=== PATIENT | male | born 1960 | race Caucasian/White ===

== ENCOUNTER 2024-03-23 19:44 | Inpatient (IN) | payer OTHER, SELFPAY ==
[2024-03-23] VITALS (11 sets, daily range): BP systolic 106–133; BP diastolic 66–92; BMI 22.2
--- NOTE | 2024-03-23 14:08 | ED.GENMED ---
History of Present Illness
<Carson Quigley DO - Last Filed: 03/23/24 14:12>
General
Chief Complaint: Head Injury
Time Seen by Provider: 03/23/24 14:02
<Gabriele Soto PA-C - Last Filed: 03/25/24 08:15>
General
Source: patient
History of Present Illness
History of Present Illness:
63-year-old male presenting to the emergency department for evaluation with the EMS after he was reportedly found behind the liquor store after an unwitnessed fall which resulted in right-sided head and facial trauma. Patient states he did not
drink anything today but EMS reports they found him with 4 empty small wine bottles and patient does note that he normally drinks at least a few of these 1 bottles daily. Patient is unable to recollect the event but states that he had been feeling
as if you are having a much harder time walking and then felt as if he could no longer walk. Patient has noted right-sided facial trauma and notes some pain to the right side of his head/face but denies any other injuries. He notes a history of
chronic right-sided/pelvic pain which is not any different today. Denies any use of anticoagulants. Patient does state that he had to recently settle a lease and some house related issues which has been causing him some increased stress which may
have led to increased alcohol intake.
<Bethanie Fish PA-C - Last Filed: 03/23/24 22:18>
General
Exam Limitations: none
Nursing documentation reviewed up to this point in time: agreed with
Past History
<Gabriele Soto PA-C - Last Filed: 03/25/24 08:15>
Past History
ED Past Surgical History: None
Social History
Tobacco: Non-smoker
Alcohol: Chronic alcoholic
Drug: None
Personal: Single
Living: alone
Review of Systems
<Gabriele Soto PA-C - Last Filed: 03/25/24 08:15>
Review of Systems
All Other Systems: ROS reviewed and negative except as documented in HPI and ROS
Phy Exam
<Gabriele Soto PA-C - Last Filed: 03/25/24 08:15>
Physical Exam
Physical Exam:
GENERAL: Alert , in no apparent distress, appears older than stated age
HEAD: Contusion to the right frontal scalp, there are other small contusion/hematoma noted along the right side of the head/face. Patient's face is covered with dried blood
EYE: pupils equal and reactive, 4 mm bilateral
NECK: Supple, no midline tenderness, cervical collar placed
ENT: o/p clr, mmm. No tongue lacerations or dental fractures
CARDIAC: Tachycardic rate and rhythm.
LUNGS: Clear breath sounds bilaterally, no acute respiratory distress, no wheezes/rales/rhonchi
ABDOMEN: Soft, without focal tenderness, no r/g, no cvat
NEUROLOGICAL: Alert and oriented, no focal neuro deficits, no tremors with arms extended
SKIN: Warm and dry, skin intact.
MUSCULOSKELETAL: No edema, well perfused. No signs of trauma
PSYCH: Normal and appropriate interaction.
Scores
<Gabriele Soto PA-C - Last Filed: 03/25/24 08:15>
Heart Failure Risk
Heart Failure Risk Score: Not Applicable
Heart Score for Chest Pain Patients
STEMI patient?: Not applicable
Withdrawal Assessment of Alcohol
Withdrawal Assessment Completed?: Yes
Nausea and Vomiting: No nausea and no vomiting
Tactile Disturbances: None
Tremor: No tremor
Auditory Disturbances: Not present
Paroxysmal Sweats: No sweat visible
Visual Disturbances: Not present
Anxiety: No anxiety, at ease
Headache, Fullness in Head: Not present
Agitation: Normal activity
Orientation and clouding of sensorium: Oriented and can do serial additions
Total CIWA Score: 0
Alcohol Withdrawal Medication Recommendation: Equal to MSAS Score 0-4. Monitor & re-assess q2hrs, NO MEDICATION NEEDED
<Bethanie Fish PA-C - Last Filed: 03/23/24 22:18>
Withdrawal Assessment of Alcohol
Total CIWA Score: 0
Alcohol Withdrawal Medication Recommendation: Equal to MSAS Score 0-4. Monitor & re-assess q2hrs, NO MEDICATION NEEDED
Course
<Carson Quigley DO - Last Filed: 03/23/24 14:12>
Orders/Labs/Results
Orders:
Orders
03/23/24 14:04
Electrocardiogram (*1) Urgent
Reason for Study: Fatigue / Weakness
03/23/24 14:05
EKG- Treatment ONCE
03/23/24 14:06
CT Cervical Spine W/o Iv Contr Urgent
Comment:
Reason For Exam: fall, intoxicated, right sided facial trauma
CT Facial Bones W/o Iv Contras Urgent
Comment:
Reason For Exam: fall, intoxicated, right sided facial trauma
CT Head W/o Iv Contrast Urgent
Comment:
Reason For Exam: fall, intoxicated, right sided facial trauma
Cervical Collar- Treatment ONCE
Collar Type: Hard Cervical Collar
03/23/24 14:07
Tetanus/Diphth/Acelpertussis [Adacel] 0.5 ml IM .ONCE ONE
03/23/24 14:10
Alcohol Urgent
Complete Blood Count/With Diff Urgent
Comprehensive Metabolic Panel Urgent
Lipase Urgent
Comment: ADD ON
Magnesium Urgent
03/23/24 14:52
CT Abd/pelvis W Iv Cont Urgent
Comment:
Reason For Exam: fall, elevated LFT
03/23/24 Dinner
Regular
At Your Request: Full Participation
03/23/24 18:33
Add On- LAB Urgent
Tests Added?: [email or web address]
03/23/24 19:20
Admit/Transfer Patient As Directed
Co-Sign Provider:
Level of Care: Inpatient admission
Assign to:: IMU- Intermediate Care
Physician / Group: gloria
Diagnosis: alcohol withdrawal
Reason for Hospitalization: alcohol withdrawal
Expected length of stay greater than two midnights?: Yes
ELOS- Estimated Length of Stay in days: 2
I certify the patient meets the requirements for IP care: Yes
03/23/24 19:21
Code Status As Directed
Resuscitation Status: Full Code
03/23/24 21:17
0.9% Sodium Chloride 1000 ml [Nss] 1,000 ml IV 100 mls/hr
0.9% Sodium Chloride [Nss (Preservative Free)] See Protocol IV PRN PRN
FOLic ACID [Folvite] 1 mg 0.9% Sodium Chloride 50 ml [Nss] 50 ml IV DAILYPRN
Lorazepam [Ativan] 1 mg IV Q1HPRN PRN
Lorazepam [Ativan] 1 mg PO Q2HPRN PRN
Lorazepam [Ativan] 2 mg IV Q1HPRN PRN
Ondansetron Injectable [Zofran] 4 mg IV Q6HPRN PRN
Thiamine Injection 200 mg IV Q12
03/23/24 21:17
Activity As Directed
Activity Level: As Tolerated
MSAS SCORE As Directed
MSAS Score 0-4: Repeat MSAS every 2 hours until 0-4 for three consecutive assessments, then every 4 hours x 48
hours.
MSAS Score 5-7: For MILD withdrawl symptoms. Repeat MSAS and RASS every 2 hours
MSAS Score 8-11: For MODERATE withdrawal symptoms. Repeat MSAS and RASS every 1 hour. Consider ICU or IMU
level of care.
MSAS Score > 11: For SEVERE withdrawal symptoms. Repeat MSAS and RASS every 1 hour. Notify provider, consider
ICU level of care.
MSAS Additional Instructions: If no improvement or no decrease in score from severe to moderate within 12
hours, consult psychiatry
MSAS Notify Provider: Notify provider if patient requires more than 10 mg of Lorazepam in eight hour period.
Pneumatic Compression Sleeves As Directed
Type: Knee high
Vital Signs As Directed
Frequency: Per unit guidelines
DX Deep Vein Thrombosis Video Routine
03/24/24 05:36
Complete Blood Count/With Diff IN AM
Comprehensive Metabolic Panel IN AM
03/24/24 08:00
FOLic ACID [Folvite] 1 mg PO DAILY
03/26/24 20:00
Thiamine HCl [Vitamin B1] 100 mg PO BID
Abnormal Lab Results
03/23/24
14:10
WBC 4.5 L 10^3/uL
(4.8-10.8)
RBC 4.49 L 10^6/uL
(4.70-6.10)
MCV 100.2 H fL
(80.0-94.0)
MCH 35.0 H pg
(27.0-31.0)
RDW 16.0 H %
(11.5-14.5)
Plt Count 100 L 10^3/uL
(130-400)
BUN 7 L mg/dl
(9-20)
Glucose 114 H mg/dl
(70-99)
AST 546 H* U/L
(17-59)
ALT 213 H U/L
(0-50)
03/23/24 14:10
03/23/24 14:10
Vital Signs
Initial and Last Documented VS:
Initial Vital Signs
Pulse Resp Pulse Ox
109 20 97
03/23/24 14:01 03/23/24 14:01 03/23/24 14:01
Last Documented Vital Signs
Temp Pulse Resp BP Pulse Ox
98.8 F 72 15 129/83 95
03/25/24 07:30 03/25/24 06:00 03/23/24 21:17 03/25/24 06:00 03/25/24 06:00
<Gabriele Soto PA-C - Last Filed: 03/25/24 08:15>
Orders/Labs/Results
Orders:
Orders
03/23/24 14:04
Electrocardiogram (*1) Urgent
Reason for Study: Fatigue / Weakness
03/23/24 14:05
EKG- Treatment ONCE
03/23/24 14:06
CT Cervical Spine W/o Iv Contr Urgent
Comment:
Reason For Exam: fall, intoxicated, right sided facial trauma
CT Facial Bones W/o Iv Contras Urgent
Comment:
Reason For Exam: fall, intoxicated, right sided facial trauma
CT Head W/o Iv Contrast Urgent
Comment:
Reason For Exam: fall, intoxicated, right sided facial trauma
Cervical Collar- Treatment ONCE
Collar Type: Hard Cervical Collar
03/23/24 14:07
Tetanus/Diphth/Acelpertussis [Adacel] 0.5 ml IM .ONCE ONE
03/23/24 14:10
Alcohol Urgent
Complete Blood Count/With Diff Urgent
Comprehensive Metabolic Panel Urgent
Lipase Urgent
Comment: ADD ON
Magnesium Urgent
03/23/24 14:52
CT Abd/pelvis W Iv Cont Urgent
Comment:
Reason For Exam: fall, elevated LFT
03/23/24 Dinner
Regular
At Your Request: Full Participation
03/23/24 18:33
Add On- LAB Urgent
Tests Added?: [email or web address]
03/23/24 19:20
Admit/Transfer Patient As Directed
Co-Sign Provider:
Level of Care: Inpatient admission
Assign to:: IMU- Intermediate Care
Physician / Group: gloria
Diagnosis: alcohol withdrawal
Reason for Hospitalization: alcohol withdrawal
Expected length of stay greater than two midnights?: Yes
ELOS- Estimated Length of Stay in days: 2
I certify the patient meets the requirements for IP care: Yes
03/23/24 19:21
Code Status As Directed
Resuscitation Status: Full Code
03/23/24 21:17
0.9% Sodium Chloride 1000 ml [Nss] 1,000 ml IV 100 mls/hr
0.9% Sodium Chloride [Nss (Preservative Free)] See Protocol IV PRN PRN
FOLic ACID [Folvite] 1 mg 0.9% Sodium Chloride 50 ml [Nss] 50 ml IV DAILYPRN
Lorazepam [Ativan] 1 mg IV Q1HPRN PRN
Lorazepam [Ativan] 1 mg PO Q2HPRN PRN
Lorazepam [Ativan] 2 mg IV Q1HPRN PRN
Ondansetron Injectable [Zofran] 4 mg IV Q6HPRN PRN
Thiamine Injection 200 mg IV Q12
03/23/24 21:17
Activity As Directed
Activity Level: As Tolerated
MSAS SCORE As Directed
MSAS Score 0-4: Repeat MSAS every 2 hours until 0-4 for three consecutive assessments, then every 4 hours x 48
hours.
MSAS Score 5-7: For MILD withdrawl symptoms. Repeat MSAS and RASS every 2 hours
MSAS Score 8-11: For MODERATE withdrawal symptoms. Repeat MSAS and RASS every 1 hour. Consider ICU or IMU
level of care.
MSAS Score > 11: For SEVERE withdrawal symptoms. Repeat MSAS and RASS every 1 hour. Notify provider, consider
ICU level of care.
MSAS Additional Instructions: If no improvement or no decrease in score from severe to moderate within 12
hours, consult psychiatry
MSAS Notify Provider: Notify provider if patient requires more than 10 mg of Lorazepam in eight hour period.
Pneumatic Compression Sleeves As Directed
Type: Knee high
Vital Signs As Directed
Frequency: Per unit guidelines
DX Deep Vein Thrombosis Video Routine
03/24/24 05:36
Complete Blood Count/With Diff IN AM
Comprehensive Metabolic Panel IN AM
03/24/24 08:00
FOLic ACID [Folvite] 1 mg PO DAILY
03/26/24 20:00
Thiamine HCl [Vitamin B1] 100 mg PO BID
Abnormal Lab Results
03/23/24
14:10
WBC 4.5 L 10^3/uL
(4.8-10.8)
RBC 4.49 L 10^6/uL
(4.70-6.10)
MCV 100.2 H fL
(80.0-94.0)
MCH 35.0 H pg
(27.0-31.0)
RDW 16.0 H %
(11.5-14.5)
Plt Count 100 L 10^3/uL
(130-400)
BUN 7 L mg/dl
(9-20)
Glucose 114 H mg/dl
(70-99)
AST 546 H* U/L
(17-59)
ALT 213 H U/L
(0-50)
03/23/24 14:10
03/23/24 14:10
Vital Signs
Initial and Last Documented VS:
Initial Vital Signs
Pulse Resp Pulse Ox
109 20 97
03/23/24 14:01 03/23/24 14:01 03/23/24 14:01
Last Documented Vital Signs
Temp Pulse Resp BP Pulse Ox
98.8 F 72 15 129/83 95
03/25/24 07:30 03/25/24 06:00 03/23/24 21:17 03/25/24 06:00 03/25/24 06:00
<Bethanie Fish PA-C - Last Filed: 03/23/24 22:18>
Orders/Labs/Results
Orders:
Orders
03/23/24 14:04
Electrocardiogram (*1) Urgent
Reason for Study: Fatigue / Weakness
03/23/24 14:05
EKG- Treatment ONCE
03/23/24 14:06
CT Cervical Spine W/o Iv Contr Urgent
Comment:
Reason For Exam: fall, intoxicated, right sided facial trauma
CT Facial Bones W/o Iv Contras Urgent
Comment:
Reason For Exam: fall, intoxicated, right sided facial trauma
CT Head W/o Iv Contrast Urgent
Comment:
Reason For Exam: fall, intoxicated, right sided facial trauma
Cervical Collar- Treatment ONCE
Collar Type: Hard Cervical Collar
03/23/24 14:07
Tetanus/Diphth/Acelpertussis [Adacel] 0.5 ml IM .ONCE ONE
03/23/24 14:10
Alcohol Urgent
Complete Blood Count/With Diff Urgent
Comprehensive Metabolic Panel Urgent
Lipase Urgent
Comment: ADD ON
Magnesium Urgent
03/23/24 14:52
CT Abd/pelvis W Iv Cont Urgent
Comment:
Reason For Exam: fall, elevated LFT
03/23/24 Dinner
Regular
At Your Request: Full Participation
03/23/24 18:33
Add On- LAB Urgent
Tests Added?: [email or web address]
03/23/24 19:20
Admit/Transfer Patient As Directed
Co-Sign Provider:
Level of Care: Inpatient admission
Assign to:: IMU- Intermediate Care
Physician / Group: gloria
Diagnosis: alcohol withdrawal
Reason for Hospitalization: alcohol withdrawal
Expected length of stay greater than two midnights?: Yes
ELOS- Estimated Length of Stay in days: 2
I certify the patient meets the requirements for IP care: Yes
03/23/24 19:21
Code Status As Directed
Resuscitation Status: Full Code
03/23/24 21:17
0.9% Sodium Chloride 1000 ml [Nss] 1,000 ml IV 100 mls/hr
0.9% Sodium Chloride [Nss (Preservative Free)] See Protocol IV PRN PRN
FOLic ACID [Folvite] 1 mg 0.9% Sodium Chloride 50 ml [Nss] 50 ml IV DAILYPRN
Lorazepam [Ativan] 1 mg IV Q1HPRN PRN
Lorazepam [Ativan] 1 mg PO Q2HPRN PRN
Lorazepam [Ativan] 2 mg IV Q1HPRN PRN
Ondansetron Injectable [Zofran] 4 mg IV Q6HPRN PRN
Thiamine Injection 200 mg IV Q12
03/23/24 21:17
Activity As Directed
Activity Level: As Tolerated
MSAS SCORE As Directed
MSAS Score 0-4: Repeat MSAS every 2 hours until 0-4 for three consecutive assessments, then every 4 hours x 48
hours.
MSAS Score 5-7: For MILD withdrawl symptoms. Repeat MSAS and RASS every 2 hours
MSAS Score 8-11: For MODERATE withdrawal symptoms. Repeat MSAS and RASS every 1 hour. Consider ICU or IMU
level of care.
MSAS Score > 11: For SEVERE withdrawal symptoms. Repeat MSAS and RASS every 1 hour. Notify provider, consider
ICU level of care.
MSAS Additional Instructions: If no improvement or no decrease in score from severe to moderate within 12
hours, consult psychiatry
MSAS Notify Provider: Notify provider if patient requires more than 10 mg of Lorazepam in eight hour period.
Pneumatic Compression Sleeves As Directed
Type: Knee high
Vital Signs As Directed
Frequency: Per unit guidelines
DX Deep Vein Thrombosis Video Routine
03/24/24 05:36
Complete Blood Count/With Diff IN AM
Comprehensive Metabolic Panel IN AM
03/24/24 08:00
FOLic ACID [Folvite] 1 mg PO DAILY
03/26/24 20:00
Thiamine HCl [Vitamin B1] 100 mg PO BID
Abnormal Lab Results
03/23/24
14:10
WBC 4.5 L 10^3/uL
(4.8-10.8)
RBC 4.49 L 10^6/uL
(4.70-6.10)
MCV 100.2 H fL
(80.0-94.0)
MCH 35.0 H pg
(27.0-31.0)
RDW 16.0 H %
(11.5-14.5)
Plt Count 100 L 10^3/uL
(130-400)
BUN 7 L mg/dl
(9-20)
Glucose 114 H mg/dl
(70-99)
AST 546 H* U/L
(17-59)
ALT 213 H U/L
(0-50)
03/23/24 14:10
03/23/24 14:10
Vital Signs
Initial and Last Documented VS:
Initial Vital Signs
Pulse Resp Pulse Ox
109 20 97
03/23/24 14:01 03/23/24 14:01 03/23/24 14:01
Last Documented Vital Signs
Temp Pulse Resp BP Pulse Ox
98.8 F 72 15 129/83 95
03/25/24 07:30 03/25/24 06:00 03/23/24 21:17 03/25/24 06:00 03/25/24 06:00
<Gabriele Soto PA-C - Last Filed: 03/25/24 08:15>
MDM/Problems Addressed
Differential Diagnosis Includes:
Accidental fall, acute alcohol intoxication, intracranial bleeding, cervical spine injury, facial fractures
MDM/Problems Addressed:
63-year-old male presenting to the ER with EMS after he was reportedly found behind a liquor store after an unwitnessed fall. Patient has noted right sided head/facial injury. The abrasions/contusions noted are not amenable to any laceration
repair. Will update patient's tetanus. Stat head CT, cervical spine CT and facial bone CT ordered. Patient placed in a cervical collar given his acute intoxication. Labs ordered. Disposition pending.
Chronic conditions affecting care: Psychiatric illness (Chronic alcoholic)
<Gabriele Soto PA-C - Last Filed: 03/25/24 08:15>
*Radiology
Radiology exam reviewed: radiology read reviewed
*Pulse Oximetry
Patient hypoxic: no
<Bethanie Fish PA-C - Last Filed: 03/23/24 22:18>
*Critical Care Note
Total Time (30-74mins, 75-104mins- exclusive of procedures): Not Applicable
<Gabriele Soto PA-C - Last Filed: 03/25/24 08:15>
Comment
Comment:
Patient has significantly elevated LFTs on exam. No previous labs to compare to. This is most likely consistent with his history of alcohol use as his T. bili is normal however given the tensional trauma I did add on a CT of the abdomen and pelvis
to further assess. Disposition pending.
Patient Management
Social determinants of health affecting care: Living situation, Substance abuse and Poor outpatient follow-up
Discussion with other providers: Hospitalist
<Bethanie Fish PA-C - Last Filed: 03/23/24 22:18>
Update Note
Update Note:
6:33 pm--update, transaminitis noted, mass at the head of the pancreas noted concerning for malignancy, lipase pending, will refer for admission
ED Attending Note
<Carson Quigley DO - Last Filed: 03/23/24 14:12>
ED Attending Note
Patient seen and examined by attending physician: Yes
I performed the substantive portion of visit, reviewed & personally made and approve the management plan that is documented in note by myself or MONE.: Yes
<Gabriele Soto PA-C - Last Filed: 03/25/24 08:15>
-
Portions of this chart may have been created with voice recognition software.� Occasional wrong word or��sound alike� substitutions may have occurred due to the inherent limitations of voice recognition software.
Discharge Plan
Departure
Patient Disposition: Admit
Date of Disposition: 03/23/24
Time of Disposition: 18:42
Admit to: Med/Surg
Presentation/result/management discussed w/ accepting MD/DO: Hospitalist
Patient with high blood pressure during this ER visit?: Yes
Condition: Fair
Discharge Problem:
Mass of head of pancreas, Transaminitis
Interventions
Interventions:
*Risk Screen - Suicide Last Done: 03/23/24 14:06
*General Assessment Last Done: 03/23/24 14:06
*Neglect/Abuse Screening Last Done: 03/23/24 14:06
ED- Fall Risk Assessment Last Done: 03/23/24 21:14
*ED COVID-19 Vaccine History Last Done: 03/23/24 14:08
*Nursing Disposition Last Done: 03/23/24 21:14
ED- Neurological Assessment Last Done: 03/23/24 14:08
ED-Skin Assessment Last Done: 03/23/24 14:08
Discharge Date and Time
Discharge Date/Time: 03/23/24 21:15
[2024-03-23 14:19] LABS: % Basophils 1.1 % (0-2); % Eosinophils 0.7 % (0-6); % Immature Granulocytes 0.4 % (0-0.5); % Lymphocytes 33.3 % (20.5-51.1); % Monocytes 7.3 % (1.7-9.3); % Neutrophils 57.2 % (42.2-75.2); Absolute Basophils 0.1 10^3/uL (0-0.2); Absolute Lymphocytes 1.5 10^3/uL (1.2-3.4); Absolute Monocytes 0.3 10^3/uL (0.1-0.6); Absolute Neutrophils 2.6 10^3/uL (1.4-6.5); Hemoglobin 15.7 g/dL (13.0-18.0); Mean Corp Hgb Conc. 34.9 g/dL (33.0-37.0); Mean Corpuscular Volume 100.2 fL (80.0-94.0); Mean Platelet Volume 9.8 fL (7.4-10.4); Nucleated Red Blood Cells % 0 % (-); Platelet Count 100 10^3/uL (130-400); Red Blood Cell Count 4.49 10^6/uL (4.70-6.10); White Blood Cell Count 4.5 10^3/uL (4.8-10.8)
[2024-03-23 14:39] LABS: ALT (SGPT) 213 U/L (0-50); AST (SGOT) 546 U/L (17-59); Albumin 4.6 g/dl (3.5-5.0); Alkaline Phosphatase 120 U/L (38-126); Blood Urea Nitrogen 7 mg/dl (9-20); Calcium 9.3 mg/dl (8.4-10.2); Carbon Dioxide 24 mmol/L (22-30); Chloride 102 mmol/L (98-107); Glucose 114 mg/dl (70-99); Magnesium 1.7 mg/dl (1.6-2.3); Potassium 4.3 mmol/L (3.5-5.1); Sodium 144 mmol/L (135-145); Total Bilirubin 1.3 mg/dl (0.2-1.3); Total Protein 6.8 g/dl (6.3-8.2); eGFR > 60.00
[2024-03-23] MEDS: ADACEL 0.5 ML IM (14:39)
[2024-03-23 14:45] LABS: Alcohol 338 mg/dl
[2024-03-23 19:05] LABS: Lipase 93 U/L (23-300)
--- NOTE | 2024-03-23 19:25 | HPS.HSE ---
Family Physician
-
Family Physician: Doug Greenberg
Chief Complaint
-
fall
History of Present Illness
63-year-old male past medical history of BPH, presenting with unwitnessed fall resulting in right-sided head and facial trauma. He did not drink any alcohol today but EMS found him with 4 empty small wine bottles and patient normally drinks 1 of
that pack per day. His last ring was yesterday. Patient unable to recall the event but states that he has been feeling like he was having a much harder time walking could no longer walk. He has some pain on the right side of his head and face.
He has chronic right-sided pelvic pain which is not any different today.
He smokes cigars and denies any drugs.
His father had prostate cancer. His brother had cancer but he does not know which cancer.
Medical History
Past Medical History
Past Medical History: Reports Other (BPH, hypertension, hyperlipidemia,, prediabetes, arthritis )
Past Surgical History: Reports None
Social History
Tobacco: Non-smoker
Alcohol: None
Drug: None
Family History
Family History: Not pertinent
Allergies / Home Medications
Allergies reflects when Allergies were last updated in [facility].
Home Medications with original date entered in [facility]
Allergy/Medication List:
Allergies
Allergy/AdvReac Type Severity Reaction Status Date / Time
NKA - No Known Allergies Allergy Uncoded 08/30/07 16:43
Home Medications
diazepam 10 mg tablet 10 mg PO DAILYPRN PRN anxiety/muscle spasms 03/23/24
Review of Systems
-
History Source: Patient
A 12 point ROS was completed and negative except as noted: Yes
Constitutional: Reports No Symptoms
EENT: Reports No Symptoms
Respiratory: Reports No Symptoms
Cardiac: Reports No Symptoms
Abdomen/GI: Reports See HPI
: Reports No Symptoms
Musculoskeletal: Reports No Symptoms
Skin: Reports No Symptoms
Neurological: Reports No Symptoms
Endocrine: Reports No Symptoms
Hematologic/Lymphatic: Reports No Symptoms
Psych: Reports No Symptoms
Physical Exam
Vital Signs
Vital Signs
Temp Pulse Resp BP Pulse Ox
98.1 F 86 20 112/73 97
03/23/24 14:08 03/23/24 18:30 03/23/24 18:30 03/23/24 18:00 03/23/24 14:01
Physical Exam
General: Well Developed, Well Nourished and No Apparent Distress
HEENT: NormoCephalic, Moist mucous membranes and Atraumatic
Respiratory: Clear
Cardiac: S1/S2 and Regular Rhythm; No Murmur or Rub
GI: Soft, Non Tender, Non Distended and Normal Bowel Sounds; No Organomegaly
Rectal: Deferred by Provider
Musculoskeletal: No Clubbing, No Cyanosis and No Edema
Skin: Other (facial lacerations ); No Rash
Neuro: Nonfocal/grossly intact
Laboratory Results
-
03/23/24 14:10
03/23/24 14:10
Laboratory Results
Total Bilirubin 1.3 mg/dl (0.2-1.3) 03/23/24 14:10
AST 546 U/L (17-59) H* 03/23/24 14:10
ALT 213 U/L (0-50) H 03/23/24 14:10
Alkaline Phosphatase 120 U/L (38-126) 03/23/24 14:10
Lipase 93 U/L (23-300) 03/23/24 14:10
Data Reviewed
-
Lab Data: Labs Reviewed by me
Old Records: Reviewed
Impression/Plan
-
IMPRESSION:
PLAN:
# Fall/possible syncopal episode related to alcohol use
# Alcohol use disorder
-CT head no acute abnormality
-CT facial bones, C-spine shows no acute fractures
-Tdap given
-Alcohol level 330
-IV fluids
-Thiamine and folate
-Alcohol withdrawal protocol
# Facial lacerations
# Transaminitis secondary to pancreatic head mass possible bile duct obstruction concerning for malignancy
-CT abdomen pelvis shows pancreatic head mass concerning for malignancy until proven otherwise
-MRCP
-GI consulted
# Thrombocytopenia secondary to alcohol use
# Leukopenia secondary to alcohol use
BPH
Essential hypertension
Hyperlipidemia
Prediabetes
Arthritis
Full code
DVT prophylaxis�heparin
Regular diet
[2024-03-23] MEDS: NSS 1000 IV (21:46)
[2024-03-23] MEDS: THIAMINE INJECTION 200 MG IV (21:54)
[2024-03-24] VITALS (12 sets, daily range): BP systolic 120–145; BP diastolic 73–89
--- NOTE | 2024-03-24 00:17 | PTCARENOTE ---
Admitted pt overnight. AAox3, pleasant. Presents with facial wounds, R forehead & nose abrasion. Cleaned with saline & bandaid & 2x2 applied. Nose cleaned and left HENRIQUE, consulted wound nurse. Chronic pelvic/R hip pain, 08/15. NSR on monitor, remains
RA. OOB x1, weak.
Oldest daughter Pauline can be added to emergency contacts [phone]
Pt told nurse he lives [place] apartment in [place] and he has been under a lot of stress lately. He needs to move out of his apartment in 2 weeks and still needs to find a place to live. Offered emotional support & offered CM to come speak to him
about arrangements after his hospitalization.
MSAS protocol, pt calm, respectful, not showing signs of withdrawal at this time. Will monitor. CAll suh in reach.
[2024-03-24] MEDS: NSS (PRESERVATIVE FREE) 0.25 ML IV ×2 (01:35→05:43)
[2024-03-24] MEDS: ATIVAN 1 MG IV ×2 (01:35→05:42)
[2024-03-24 06:08] LABS: % Basophils 0.8 % (0-2); % Eosinophils 0.4 % (0-6); % Immature Granulocytes 0.2 % (0-0.5); % Lymphocytes 28.5 % (20.5-51.1); % Monocytes 11.9 % (1.7-9.3); % Neutrophils 58.2 % (42.2-75.2); Absolute Lymphocytes 1.4 10^3/uL (1.2-3.4); Absolute Monocytes 0.6 10^3/uL (0.1-0.6); Absolute Neutrophils 2.9 10^3/uL (1.4-6.5); Hematocrit 37.8 % (39.0-52.0); Hemoglobin 13.1 g/dL (13.0-18.0); Mean Corp Hgb Conc. 34.7 g/dL (33.0-37.0); Mean Corpuscular Hgb 34.7 pg (27.0-31.0); Mean Corpuscular Volume 100.3 fL (80.0-94.0); Nucleated Red Blood Cells % 0 % (-); Platelet Count 78 10^3/uL (130-400); Red Blood Cell Count 3.77 10^6/uL (4.70-6.10); Red Cell Dist. Width 16.2 % (11.5-14.5); White Blood Cell Count 4.9 10^3/uL (4.8-10.8)
[2024-03-24 06:23] LABS: ALT (SGPT) 160 U/L (0-50); AST (SGOT) 284 U/L (17-59); Albumin 3.6 g/dl (3.5-5.0); Alkaline Phosphatase 88 U/L (38-126); Blood Urea Nitrogen 9 mg/dl (9-20); Calcium 8.4 mg/dl (8.4-10.2); Carbon Dioxide 24 mmol/L (22-30); Chloride 104 mmol/L (98-107); Estimated Creatinine Clearance > 125 ml/min; Glucose 90 mg/dl (70-99); Potassium 3.9 mmol/L (3.5-5.1); Sodium 139 mmol/L (135-145); Total Bilirubin 1.6 mg/dl (0.2-1.3); Total Protein 5.6 g/dl (6.3-8.2); eGFR > 60.00
--- NOTE | 2024-03-24 08:11 | W.PN.HOSP.TC ---
Today's Communication/Plan
-
see A/P
Assessment / Plan
Assessment / Plan
HPI: 63-year-old male past medical history of BPH, presented with unwitnessed fall resulting in right-sided head and facial trauma. He did not drink any alcohol on DOA but EMS found him with 4 empty small wine bottles and patient normally drinks 1
of that pack per day. 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 Patient unable to recall the event but states that he has been feeling like he was having a much harder time walking/ could no longer walk. He has some pain on the right side of his head and
face. He has chronic right-sided pelvic pain which is not any different.
He smokes cigars and denies any drugs.
His father had prostate cancer. His brother had cancer but he does not know which cancer.
A/P:
# Fall/possible syncope related to alcohol abuse
# Alcohol use disorder
CT head no acute abnormality. CT facial bones, C-spine shows no acute fractures
Tdap given
Alcohol level 330 on admission
Cont Alcohol withdrawal protocol
IV fluids, Thiamine and folate
Offered [facility] CS, pt politely declined currently
# Facial lacerations from all
local wound care
# Transaminitis secondary to pancreatic head mass possible bile duct obstruction concerning for malignancy
CT abdomen pelvis noted pancreatic head mass concerning for malignancy until proven otherwise
MRCP
GI consulted
# Thrombocytopenia secondary to alcohol use
# BPH
# Essential hypertension
# Hyperlipidemia
# Prediabetes
# Arthritis
Full code
DVT prophylaxis�heparin
Regular diet
high risk for alcohol withdrawal
DW RN
Anticipated Discharge: > 48 hours
Subjective/Interval History
-
Date of Service: March 24, 2024
Objective Data
-
Labs:
Laboratory Results
03/24/24
05:36
WBC 4.9
Hgb 13.1
Hct 37.8 L
Plt Count 78 L D
Sodium 139
Potassium 3.9
Chloride 104
Carbon Dioxide 24
BUN 9
Creatinine 0.5 L
Glucose 90
Calcium 8.4
Total Bilirubin 1.6 H
AST 284 H
ALT 160 H
Alkaline Phosphatase 88
Vital Signs:
Vital Signs
Temp Pulse Resp BP Pulse Ox
37.1 C 85 15 138/82 95
03/24/24 07:05 03/24/24 06:00 03/23/24 21:17 03/24/24 06:00 03/24/24 06:00
I&O
03/23/24 03/24/24 03/25/24
06:59 06:59 06:59
Intake Total 240 / 240
Balance 240 / 240
Review of Systems
-
All other systems: Reviewed and negative
Physical Exam
-
General: Well Developed, Well Nourished, No Apparent Distress, Comfortable and Conversant; Negative Respiratory Distress
HEENT: Normocephalic, Atraumatic, Nose Appears Normal and Ears Appear Normal; Negative Oxygen
Respiratory: Clear to Auscultation and Non Labored Respirations; Negative Accessory Resp Muscle Use
Cardiac: Regular Rhythm and S1/S2
GI: Soft, Nontender, Nondistended and Normal Bowel Sounds
Skin: Warm, Dry and Other (nasal bridge skin laceration, R forehead laceration )
Neuro: Awake, Alert and Oriented
Psych: Calm and Intact Judgement/Insight
Data Reviewed
-
CT Scan: Report Reviewed by me
Labs: Labs Reviewed by me
--- NOTE | 2024-03-24 08:28 | CON.GI ---
Addendum entered and electronically signed by Kellie Woodall DO 03/24/24 10:13:
can't calculate a Toby's discriminant function for alcoholic hepatitis based on no coagulation studies. I have ordered an INR/PT for the morning
Original Note:
Consultation
-
Date/Time Consultation Requested: 03/24/2024
Date/Time Consultation Performed: 03/24/2024
Requesting Provider: Hospitalist
Performing Provider: Dr. Woodall
Reason for Consultation: Concern for pancreatic mass
Medical History
Chief Complaint / HPI
Chief Complaint: Fall
History of Present Illness:
Patient is a 63-year-old chronic alcoholic with history of BPH who comes in after being found behind a liquor store after an unwitnessed fall that resulted in a right sided facial and head trauma. He does not remember any of the details. He does
not drive and walks to and from the liquor store. He has chronic low back and leg pain. He is not on any anticoagulants. He lives alone. His closest relative is his daughter who lives near the airport in [place]. He drinks at least 4-8
small wine bottles daily and has for years. He does not want to quit.
We were consulted for abnormal imaging of a pancreatic 2 cm lesion on the pancreatic head.
No prior abdominal imaging to review
In questioning him he denies any heartburn, dysphagia, nausea, vomiting, abdominal pain, diarrhea, constipation or rectal bleeding.
He has lost about 40 pounds over the past year. He states it is because he walks a lot because he does not have a car and he does not want to fix food because bending over hurts his back.
No prior known pancreatitis. No family history of pancreatitis or pancreatic cancer
He does smoke cigars on a daily basis. Alcohol level on admission was 338. Total bilirubin 1.3, AST 546, ALT 213, alkaline phosphatase 120.
Patient has been in rehab twice. He does not want to stop drinking.
Past Medical History
Past Medical History: Other (Chronic fatigue, hypertension, chronic pain, chronic alcoholism, prior narcotic abuse)
Past Surgical History: Other (Right hip tear repair, right inguinal hernia repair)
Social History
Tobacco: Smoker
Alcohol: Chronic Alcoholic
Personal: Single
Living: Alone
Employment: Not Employed
Family History
Family History: Other (Bladder cancer, stroke, and with colon cancer)
Allergies / Home Medications
Allergy/AdvReac Type Severity Reaction Status Date / Time
No Known Allergies Allergy Unverified 03/24/24 08:24
�Medication �Instructions �Recorded
diazepam 10 mg tablet 10 mg PO DAILYPRN PRN 03/23/24
anxiety/muscle spasms
Review of Systems
-
All other systems: A 12 pt ROS was Negative except as stated above in HPI
Vital Signs
Temp Pulse Resp BP Pulse Ox
98.8 F 85 15 138/82 95
03/24/24 07:05 03/24/24 06:00 03/23/24 21:17 03/24/24 06:00 03/24/24 06:00
Physical Exam
Exam
General: Other (Facial lacerations on his nose and face)
HEENT: Anicteric
Respiratory: Clear
Cardiac: S1/S2
GI: Soft, Non Tender and Non Distended
Neuro: AO x 3
Psych: Calm and Other (Tremulous)
Results
WBC 4.9 10^3/uL (4.8-10.8) 03/24/24 05:36
Hgb 13.1 g/dL (13.0-18.0) 03/24/24 05:36
Hct 37.8 % (39.0-52.0) L 03/24/24 05:36
MCV 100.3 fL (80.0-94.0) H 03/24/24 05:36
Plt Count 78 10^3/uL (130-400) L D 03/24/24 05:36
Absolute Neuts (auto) 2.9 10^3/uL (1.4-6.5) 03/24/24 05:36
Sodium 139 mmol/L (135-145) 03/24/24 05:36
Potassium 3.9 mmol/L (3.5-5.1) 03/24/24 05:36
Chloride 104 mmol/L (98-107) 03/24/24 05:36
Carbon Dioxide 24 mmol/L (22-30) 03/24/24 05:36
BUN 9 mg/dl (9-20) 03/24/24 05:36
Creatinine 0.5 mg/dL (0.7-1.3) L 03/24/24 05:36
Calcium 8.4 mg/dl (8.4-10.2) 03/24/24 05:36
Total Bilirubin 1.6 mg/dl (0.2-1.3) H 03/24/24 05:36
AST 284 U/L (17-59) H 03/24/24 05:36
ALT 160 U/L (0-50) H 03/24/24 05:36
Alkaline Phosphatase 88 U/L (38-126) 03/24/24 05:36
Lipase 93 U/L (23-300) 03/23/24 14:10
Diagnostic Image Results:
03/23/2024, CT abdomen pelvis with oral and IV contrast for intoxication and fall with elevated LFTs: Fatty liver otherwise normal, small gallstones, several coarse pancreatic calcifications consistent with chronic pancreatitis, hypodense pancreatic
head mass measuring 2.1 cm no pancreatic ductal dilatation. Atrophic pancreas body and tail.
-- No prior abdominal imaging to review
Prior GI Procedures:
EGD:
Colonoscopy: 06/2019 after positive Cologuard with Dr. Alejandro rutherford prep to the cecum. 7 mm distal sigmoid adenoma, multiple diverticuli otherwise normal. Repeat in 5 years
Labs from 12/22/2023 from outpatient records with Dr. Greenberg, normal CBC hemoglobin 16.4, white count 7.7, platelets 184, total bilirubin 0.7, AST 38, ALT 19, alkaline phosphatase 63, creatinine 0.7
Labs from admission 03/23/2024 white count 4.5, hemoglobin 15.7, MCV 100, platelets 100, AST 546, ALT 213, alkaline phosphatase 120, total bilirubin 1.6
Labs from 03/24/2024 total bilirubin 1.6, AST 284, ALT 168, alkaline phosphatase 88
Assessment / Plan
-
Michael is a 63-year-old chronic alcoholic who found down behind a liquor store after a fall with incidental finding on CT scan showing a 2.1 cm pancreatic head lesion with no ductal dilatation with atrophy and likely chronic pancreatitis with no
abdominal pain who has had 40 pound weight loss over this past year which is likely multifactorial with heavy alcohol use, increased walking without transportation and lack of desire to eat
Diagnostic Image Results:
03/23/2024, CT abdomen pelvis with oral and IV contrast for intoxication and fall with elevated LFTs: Fatty liver otherwise normal, small gallstones, several coarse pancreatic calcifications consistent with chronic pancreatitis, hypodense pancreatic
head mass measuring 2.1 cm no pancreatic ductal dilatation. Atrophic pancreas body and tail.
-- No prior abdominal imaging to review
Prior GI Procedures:
EGD: None
Colonoscopy: 06/2019 after positive Cologuard with Dr. Allen adequate prep to the cecum. 7 mm distal sigmoid adenoma, multiple diverticuli otherwise normal. Repeat in 5 years
Labs from 12/22/2023 from outpatient records with Dr. Greenberg, normal CBC hemoglobin 16.4, white count 7.7, platelets 184, total bilirubin 0.7, AST 38, ALT 19, alkaline phosphatase 63, creatinine 0.7
Labs from admission 03/23/2024 white count 4.5, hemoglobin 15.7, MCV 100, platelets 100, AST 546, ALT 213, alkaline phosphatase 120, total bilirubin 1.6
Labs from 03/24/2024 total bilirubin 1.6, AST 284, ALT 168, alkaline phosphatase 88
# Pancreatic 2.1 cm head lesion without pancreatic ductal dilatation with likely chronic alcoholic pancreatitis based on imaging with no known symptomatic pancreatitis
--Lesion was incidentally found
--There is no ductal dilatation and likely not obstructing
--His elevated bilirubin and AST ALT are more likely related to the heavy alcohol use and possibly alcoholic hepatitis
--Repeat in the morning
--Will get MRI MRCP to better evaluate the pancreatic head lesion, patient will likely need outpatient EUS
# DTs -patient is tremulous, I have contacted the nurse to let her know to give him the benzodiazepines that are ordered
--He is getting thiamine and folate
--Discussed alcohol cessation which she is going to think about
Data Reviewed
-
Old Records: Reviewed
-
-
Thank you for consultation and allowing me to participate in the patient's care. Please call the geographic information scientist GI physician during the after hours with any questions or concerns.
[2024-03-24] MEDS: ATIVAN 1 MG PO ×3 (08:47→20:23)
[2024-03-24] MEDS: THIAMINE INJECTION 200 MG IV ×2 (08:48→20:23)
[2024-03-24] MEDS: FOLVITE 1 MG PO (08:48)
[2024-03-24] MEDS: REFRESH EYE DROPS (PF) 1 DROPS OPHTH ×3 (08:54→16:55)
[2024-03-24 09:08] LABS: Direct Bilirubin 0.5 mg/dl (0.0-0.4)
--- NOTE | 2024-03-24 13:11 | PTCARENOTE ---
Patient AAOX3. MSAS ordered. Patient scores have been 4-7. PO ativan given as per protocol. Patient is assist x1 to bathroom. Unsteady on his feet. Abrasions on forehead and nose cleansed with saline and dressings applied. VS stable. SR/ST on
monitor. Heart rates up t0 150 with exertion. Appetite good. Will continue to monitor frequently.
[2024-03-24] MEDS: NSS IV (14:39)
[2024-03-24] MEDS: LOVENOX 40 MG SC (16:55)
--- NOTE | 2024-03-24 19:43 | PTCARENOTE ---
Patient to be NPO tomorrow for MRI of abdomen.
[2024-03-24] MEDS: RESTASIS 0.05% OPHTHALMIC EMULSION 1 DROPS BOTH EYES (20:23)
[2024-03-24] MEDS: NON-FORMULARY ITEM 1 UNIT BOTH EYES (20:23)
[2024-03-24] MEDS: REFRESH EYE DROPS (PF) OPHTH (20:54)
[2024-03-25] VITALS (9 sets, daily range): BP systolic 113–161; BP diastolic 61–92
[2024-03-25 03:05] LABS: Hepatitis C Antibody Negative (Negative)
[2024-03-25 05:07] LABS: Hematocrit 36.9 % (39.0-52.0); Hemoglobin 12.5 g/dL (13.0-18.0); Mean Corp Hgb Conc. 33.9 g/dL (33.0-37.0); Mean Corpuscular Hgb 34.2 pg (27.0-31.0); Mean Corpuscular Volume 101.1 fL (80.0-94.0); Mean Platelet Volume 10.2 fL (7.4-10.4); Platelet Count 56 10^3/uL (130-400); Red Blood Cell Count 3.65 10^6/uL (4.70-6.10); Red Cell Dist. Width 15.7 % (11.5-14.5); White Blood Cell Count 3.5 10^3/uL (4.8-10.8)
[2024-03-25 05:13] LABS: INR 1.09; PT 14.4 Sec (11.4-14.6)
[2024-03-25 05:27] LABS: ALT (SGPT) 110 U/L (0-50); AST (SGOT) 150 U/L (17-59); Albumin 3.3 g/dl (3.5-5.0); Alkaline Phosphatase 84 U/L (38-126); Blood Urea Nitrogen 12 mg/dl (9-20); Calcium 8.5 mg/dl (8.4-10.2); Carbon Dioxide 26 mmol/L (22-30); Chloride 103 mmol/L (98-107); Estimated Creatinine Clearance > 125 ml/min; Glucose 99 mg/dl (70-99); Magnesium 1.6 mg/dl (1.6-2.3); Potassium 3.8 mmol/L (3.5-5.1); Sodium 138 mmol/L (135-145); Total Bilirubin 1.6 mg/dl (0.2-1.3); Total Protein 5.4 g/dl (6.3-8.2); eGFR > 60.00
[2024-03-25] MEDS: THIAMINE INJECTION 200 MG IV ×2 (07:54→20:00)
[2024-03-25] MEDS: FOLVITE 1 MG PO (07:54)
[2024-03-25] MEDS: RESTASIS 0.05% OPHTHALMIC EMULSION 1 DROPS BOTH EYES ×2 (07:54→20:00)
[2024-03-25] MEDS: REFRESH EYE DROPS (PF) 1 DROPS OPHTH ×3 (07:54→17:41)
--- NOTE | 2024-03-25 08:28 | PTCARENOTE ---
Patient received from material handler 1st shift. Patient resting comfortably in bed. EMILIANO WOMACK. MSAS is a 3 for this AM. No events noted overnight. No complaints of pain at this time. Currently on Room Air. Patinet with multiple abrasions on face and nose,
wound nurse to see today. Scheduled for abdominal MRI today, 1mg Ativan ordered for test. Call suh in reach.
[2024-03-25] MEDS: NSS (PRESERVATIVE FREE) 0.5 ML IV (09:56)
[2024-03-25] MEDS: ATIVAN 1 MG IV (09:56)
--- NOTE | 2024-03-25 15:33 | W.PN.HOSP.TC ---
Today's Communication/Plan
-
Assessment / Plan
Assessment / Plan
Physical Exam
NAD, resting comfortably in bed
Scleral anicteric
Moist mucous membranes
No JVD
CTA bilateral
Normal S1-S2 no murmurs
Soft nontender nondistended bowel sounds active
No peripheral pitting edema
Moves extremities spontaneously
AAOx3
Assessment and Plan
Fall/possible syncope related to alcohol abuse
Alcohol use disorder
-Continue IV fluids thiamine for
-MSAS
-As needed Ativan
-BCARECS declined
Facial lacerations from fall
-local wound care
Transaminitis in the setting of alcohol use
-MRCP ordered
-GI following
Thrombocytopenia
-Likely secondary to alcohol use
Anticipated Discharge: 24 - 48 hours
Subjective/Interval History
-
Date of Service: March 25, 2024
Seen and examined. No new complaints. No acute overnight events.
Spoke with son at bedside full update provided
Objective Data
-
Labs:
Laboratory Results
03/25/24
04:54
WBC 3.5 L
Hgb 12.5 L
Hct 36.9 L
Plt Count 56 L D
PT 14.4
INR 1.09
Sodium 138
Potassium 3.8
Chloride 103
Carbon Dioxide 26
BUN 12
Creatinine 0.6 L
Glucose 99
Calcium 8.5
Total Bilirubin 1.6 H
AST 150 H
ALT 110 H
Alkaline Phosphatase 84
Vital Signs:
Vital Signs
Temp Pulse Resp BP Pulse Ox
98.2 F 72 15 129/83 96
03/25/24 11:25 03/25/24 06:00 03/23/24 21:17 03/25/24 06:00 03/25/24 10:46
I&O
03/24/24 03/25/24 03/26/24
06:59 06:59 06:59
Intake Total 240 / 240 1964
Balance 240 / 240 1964
--- NOTE | 2024-03-25 15:40 | WOUNDNOTE ---
SCALP (R SIDE, NEAR FOREHEAD)
--- NOTE | 2024-03-25 15:40 | WOUNDNOTE ---
WO RN note: Patient admitted with ETOH withdraw. Patient feel prior to admission.
See H&P for complete history.
PMH: BPH, Chronic R sided pelvic pain, arthritis.
Wound Location and type/assessment: Patient admitted with: Deep dermal abrasions on nose and R scalp near forehead.
Appetite: good.
Pressure redistribution devices in place: Centrella Lawdingo air bed. Patient moves self in bed.
Plan: Facial abrasions cleaned with saline, silicone border foam applied. Heels off bed with pillow. Instructed patient pressure injury prevention measures.
Will confirm orders with Dr. Miguel Angel Kee and discussed with YESSENIA Serrato.
Care plan to be updated and will follow as needed.
Recommend follow up at wound care center upon discharge.
--- NOTE | 2024-03-25 16:06 | W.PN.GI.CBS2 ---
Addendum entered and electronically signed by Kellie Woodall DO 03/25/24 18:47:
Patient seen and examined independently of the DIGNA. I agree with her notes with my additions below
# Pancreatic cysts -2 of them reach to 2 cm dustin. He does not have any clinical pancreatitis right now. Because of the size of his cyst he should undergo an outpatient EUS in 3 months. Patient is aware of the concern of malignant transformation
of these cysts
The larger of the cysts the more concerning they become
I sent my office a message to get him an appointment
He is understanding that he needs to stop drinking and smoking
States he did have pancreatitis 20 to 30 years ago but none since
He has lost 40 pounds
He refuses rehab
Long discussion with his 2 daughters at bedside
Will sign off. High risk for withdrawal and relapse
Addendum entered and electronically signed by DIGNA Rosales 03/25/24 17:28:
OP follow up to review for EUS
Original Note:
Today's Communication / Plan
-
MRI as noted pt report hx pancreatitis 20 years ago ? old vs new pseudocysts
currently no fever or abdominal pain
discussed and stressed ETOH abstinence
needs good nutrition-- add supplement at HS with wt loss
monitor for withdrawal still with some tremors
cont thiamine and folate deficiency
CBC, INR remains normal , LFT trending down
Assessment / Plan
-
Michael is a 63-year-old chronic alcoholic who found down behind a liquor store after a fall with incidental finding on CT scan showing a 2.1 cm pancreatic head lesion with no ductal dilatation with atrophy and likely chronic pancreatitis with no
abdominal pain who has had 40 pound weight loss over this past year which is likely multifactorial with heavy alcohol use, increased walking without transportation and lack of desire to eat
Diagnostic Image Results:
03/23/2024, CT abdomen pelvis with oral and IV contrast for intoxication and fall with elevated LFTs: Fatty liver otherwise normal, small gallstones, several coarse pancreatic calcifications consistent with chronic pancreatitis, hypodense pancreatic
head mass measuring 2.1 cm no pancreatic ductal dilatation. Atrophic pancreas body and tail.
-- No prior abdominal imaging to review
03/25 MR abdomen
1. SEVERE CHRONIC PANCREATITIS.
2. MULTIPLE PANCREATIC CYSTS (largest 2.3 cm in the pancreatic head) which are probably PSEUDOCYSTS. Pancreatic head cancer is considered less likely given the absence of a definitive soft tissue mass and the absence of pancreatic and bile duct
obstruction.
3. SEVERE DIFFUSE HEPATIC STEATOSIS.
4. Severe atrophy of the left lobe of the liver.
5. CHOLELITHIASIS.
6. Mild splenomegaly.
7. 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
Prior GI Procedures:
EGD: None
Colonoscopy: 06/2019 after positive Cologuard with Dr. Allen adequate prep to the cecum. 7 mm distal sigmoid adenoma, multiple diverticuli otherwise normal. Repeat in 5 years
Labs from 12/22/2023 from outpatient records with Dr. Greenberg, normal CBC hemoglobin 16.4, white count 7.7, platelets 184, total bilirubin 0.7, AST 38, ALT 19, alkaline phosphatase 63, creatinine 0.7
-concern for pancreatic head mass on CT follow up MRI with chronic reid anc multple pseudocysts
-ETOh abuse
-ETOH withdrawal
-wt loss
-s/p fall prior to admission
-thrombocytopenia with pancytopenia
-hypoalbuminemia
-diffuse steatosis on imaging
other med problems:
-cholelithiasis per MRI
-BPH
-HTN
-hyperlipidemia
-Prediabetic
-arthritis
PLAN:
MRI as noted pt report hx pancreatitis 20 years ago ? old vs new pseudocysts
currently no fever or abdominal pain
discussed and stressed ETOH abstinence
needs good nutrition-- add supplement at HS with wt loss
monitor for withdrawal still with some tremors
cont thiamine and folate deficiency
CBC, INR remains normal , LFT trending down
Subjective
Subjective
Date of Service: March 25, 2024
03/24 brown stool on regular diet
Objective
Data Reviewed
Laboratory Data:
Laboratory Results
03/25/24 04:54
03/25/24 04:54
Laboratory Results
PT 14.4 Sec (11.4-14.6) 03/25/24 04:54
INR 1.09 03/25/24 04:54
Magnesium 1.6 mg/dl (1.6-2.3) 03/25/24 04:54
Total Bilirubin 1.6 mg/dl (0.2-1.3) H 03/25/24 04:54
AST 150 U/L (17-59) H 03/25/24 04:54
ALT 110 U/L (0-50) H 03/25/24 04:54
Alkaline Phosphatase 84 U/L (38-126) 03/25/24 04:54
Lipase 93 U/L (23-300) 03/23/24 14:10
Vital Signs and I&O:
Vital Signs
Temp Pulse Resp BP Pulse Ox
98.2 F 72 15 129/83 96
03/25/24 11:25 03/25/24 06:00 03/23/24 21:17 03/25/24 06:00 03/25/24 10:46
I&O
03/24/24 03/25/24 03/26/24
06:59 06:59 06:59
Intake Total 240 / 240 1964
Balance 240 / 240 1964
Physical Exam
Physical Exam
HEENT: Anicteric and Moist mucous membranes
Cardiology: Normal Sinus Rhythm
Pulmonary: Clear
GI: Soft, Non Distended and Non Tender
Extremities: No Edema
Neuro: Non Focal and Other (noted with tremors on exam )
--- NOTE | 2024-03-25 17:34 | CM ---
Patient with Hx alcohol use disorder and fall prior to admission with facial and head trauma. Tox screen: Etoh 338. MRI Abdomen today. Room air. MSAS 2 per nursing. Seen by wound care nurse. Per nurse note 03/24; unsteady on feet.
Met with patient and son Darrius Puri;
patient resides alone in a multi story apartment in an elevator building.
The patient has been independent in ADLs and ambulation.
DME - [facility], [facility]
No Prior VN or SNF.
PCP - Doug Greenberg
Pharmacy - [facility] [place]
Met with patient alone and offered [facility] for Inpatient or Outpatient Etoh programs/resources---> patient declined.
He shares that he previously attended [facility] x2.
He feels he can manage his drinking on his own.
Message to Dr Kee requesting PT/OT Evals.
Plan follow up after seen by PT/OT.
[2024-03-25] MEDS: LOVENOX 40 MG SC (17:41)
[2024-03-25] MEDS: NON-FORMULARY ITEM 1 UNIT BOTH EYES (20:01)
[2024-03-25] MEDS: REFRESH EYE DROPS (PF) OPHTH (20:08)
[2024-03-26] VITALS (8 sets, daily range): BP systolic 122–163; BP diastolic 76–119; PULSE 82–83
[2024-03-26 04:22] LABS: Hematocrit 39.5 % (39.0-52.0); Hemoglobin 13.9 g/dL (13.0-18.0); Mean Corp Hgb Conc. 35.2 g/dL (33.0-37.0); Mean Corpuscular Hgb 35.5 pg (27.0-31.0); Mean Platelet Volume 10.9 fL (7.4-10.4); Platelet Count 74 10^3/uL (130-400); Red Blood Cell Count 3.91 10^6/uL (4.70-6.10); Red Cell Dist. Width 15.2 % (11.5-14.5); White Blood Cell Count 3.8 10^3/uL (4.8-10.8)
[2024-03-26 05:02] LABS: ALT (SGPT) 102 U/L (0-50); AST (SGOT) 145 U/L (17-59); Albumin 3.8 g/dl (3.5-5.0); Alkaline Phosphatase 78 U/L (38-126); Blood Urea Nitrogen 8 mg/dl (9-20); Calcium 9.1 mg/dl (8.4-10.2); Carbon Dioxide 23 mmol/L (22-30); Chloride 106 mmol/L (98-107); Estimated Creatinine Clearance > 125 ml/min; Glucose 103 mg/dl (70-99); Potassium 4.4 mmol/L (3.5-5.1); Sodium 139 mmol/L (135-145); Total Bilirubin 1.3 mg/dl (0.2-1.3); Total Protein 6.1 g/dl (6.3-8.2); eGFR > 60.00
[2024-03-26] MEDS: RESTASIS 0.05% OPHTHALMIC EMULSION 1 DROPS BOTH EYES (07:45)
[2024-03-26] MEDS: REFRESH EYE DROPS (PF) 1 DROPS OPHTH (07:45)
[2024-03-26] MEDS: FOLVITE 1 MG PO (07:46)
[2024-03-26] MEDS: THIAMINE INJECTION 200 MG IV (07:46)
--- NOTE | 2024-03-26 08:18 | PN.CDI ---
CDI
- -
CDI:
Physician Documentation Request
Admit Date: 03/23/24 19:44
Dear Doctor Chilango,
Patient admitted following fall.
ER Physician Documentation: 'Patient states he did not drink anything today but EMS reports they found him with 4 empty small wine bottles and patient does note that he normally drinks at least a few of these 1 bottles daily.'
03/25 Hospitalist PN: 'Fall/possible syncope related to alcohol abuse, Alcohol use disorder -Continue IV fluids thiamine for -MSAS -As needed Ativan'
03/23 Alcohol, quantitative: 338 mg/dl
Lorazepam 1mg PO *MSAS 5-7* administered 03/24 - 08:47, 13:55, 20:23
lorazepam 1mg IV *MSAS 8-11* administered 03/24 - 01:35, 05:42
Selected Entries
03/24/24
01:30 03/24/24
05:42 03/24/24
16:00
MSAS SCORE 6 6 5
If possible, please provide further specificity as outlined below:
1. Please specify the pattern of use, include all that apply:
- Use
- Abuse
- Dependence
- Unable to determine
2. Please identify any associated manifestations
- Intoxication: with or without delirium, with or without perceptual disturbance
- With substance induced psychotic disorder: with delusions and/or hallucinations
- Withdrawal
- With substance induced sleep disorder and/or sexual dysfunction
- Other, please specify
- No manifestations
- Unable to determine
Use of terms such as suspected, likely, concern for, or probable (associated with a specific diagnosis that is being evaluated, monitored, or treated as if it exists) are acceptable and can be coded in the inpatient setting, when documented at the
time of discharge.
Thank you,
Kalpana Sheridan RN, BSN
CDI Specialist
Available via [place] text
Please use your independent medical judgment in providing your response.
--- NOTE | 2024-03-26 09:56 | PTOTSP ---
Pt is calm and cooperative. He is able to get OOB and ambulate with steady gait without an assistive device today. No skilled PT needs were identified. Will sign off.
--- NOTE | 2024-03-26 11:59 | W.PN.HOSP.TC ---
Today's Communication/Plan
-
dc home
Assessment / Plan
Assessment / Plan
Physical Exam
NAD, resting comfortably in bed
Scleral anicteric, nasal facial lacerations they appear to be healing
Moist mucous membranes
No JVD
CTA bilateral
Normal S1-S2 no murmurs
Soft nontender nondistended bowel sounds active
No peripheral pitting edema
Moves extremities spontaneously
AAOx3
Assessment and Plan
Fall/possible syncope related to alcohol abuse
Alcohol use disorder
-Continue IV fluids thiamine for
-MSAS
-As needed Ativan - has not required
-BCARECS declined
Facial lacerations from fall
-local wound care
Transaminitis in the setting of alcohol use
-MRCP ordered
-GI following
Thrombocytopenia
-Likely secondary to alcohol use
Chronic Pancreatitis
-Outpt GI f/u
-Likely will need creaon/pancreatic enzymes supplementation in the near future
Will DC home
Anticipated Discharge: Today
Subjective/Interval History
-
Date of Service: March 26, 2024
Seen and examined. No new complaints. No acute overnight events
Asking when he would be going home
Does not feel anxious nor guilty understands that he has to stop drinking alcohol
Objective Data
-
Labs:
Laboratory Results
03/26/24
04:04
WBC 3.8 L
Hgb 13.9
Hct 39.5
Plt Count 74 L D
Sodium 139
Potassium 4.4
Chloride 106
Carbon Dioxide 23
BUN 8 L
Creatinine 0.5 L
Glucose 103 H
Calcium 9.1
Total Bilirubin 1.3
AST 145 H
ALT 102 H
Alkaline Phosphatase 78
Vital Signs:
Vital Signs
Temp Pulse Resp BP Pulse Ox
98.0 F 87 18 163/98 97
03/26/24 07:20 03/26/24 10:00 03/25/24 21:38 03/26/24 09:35 03/26/24 10:39
I&O
03/25/24 03/26/24 03/27/24
06:59 06:59 06:59
Intake Total 1964 400 / 400
Balance 1964 400 / 400
--- NOTE | 2024-03-26 12:09 | W.DCSUMMARY ---
Discharge Summary
Discharge Data
Date of Admission: 03/23/24
Date of Discharge: 03/26/24
-
Pending Results: No
Hospital Course
63 history of BPH presenting after unwitnessed fall resulting in right-sided head trauma facial trauma. He tells me that he is smoking a cigar and was sitting on a graded surface when he went to stand up he was not dizzy however when he went to go
take his first walk he is fall and injured himself. Does admit to drinking alcohol that day however he states he did not feel drunk nor did he have any signs of being drunk. While in the ED he had alcohol level 338 which equates to a VILMA of
0.3-0.4. He had a trauma workup completed that was negative. Abdominal CT did demonstrate hepatic fatty infiltration gallstones pancreatic head mass concerning for malignancy, coarse pancreatic calcifications suggestive of chronic pancreatitis,
mild diverticulosis, mild diffuse gallbladder wall thickening, mild prostate hypertrophy. Therefore a abdominal MRI was followed up which demonstrated severe chronic pancreatitis multiple pancreatic cysts largest measuring 2.3 cm in the pancreatic
head which are probably pseudocyst. Pancreatic head cancer is considered less likely given the absence of definitive soft tissue mass/absence of pancreatic/bile duct obstruction. Severe diffuse hepatic steatosis. Severe atrophy of the left lobe
of the liver. Cholelithiasis. Mild splenomegaly. He understands that if he continues to drink alcohol his liver will become more decompensated eventually develop cirrhosis. He understands chronic pancreatitis can be made worse by alcohol use.
He states that he is going to follow-up with outpatient GI for her chronic pancreatitis and hepatic steatosis.
Discharge Plan
-
Patient Disposition: Home (Routine Discharge)
Discharge Diagnosis/Procedures: Fall secondary to intoxication
Alcohol withdrawal
Facial trauma
Diet: As tolerated
Activity: As tolerated
Others Tests: Avoid all alcohol
Activity Restrictions/Additional Instructions:
Cspine
IMPRESSION: Straightening of the normal cervical spinal lordosis. This can be seen with muscular spasm. No acute fractures noted.
Multilevel degenerative disc disease as described above.
Facial Bone CT
IMPRESSION: No acute fractures identified.
Mild nonacute sinusitis.
Head CT
IMPRESSION: No acute intracranial pathology.
Mild atrophy.
Scalp hematoma.
Mild nonacute sinusitis.
Abd/Pel CT
IMPRESSION: Possible colitis of the left colon versus peristalsis. Clinical correlation recommended
Hepatic fatty infiltration.
Gallstones.
Pancreatic head mass concerning for malignancy until proven otherwise. Dilated common bile duct is less likely. Calcifications within the common bile duct cannot be excluded. This could further be evaluated by abdominal ultrasound and possibly MRCP
if inconclusive
Coarse pancreatic calcifications suggesting chronic pancreatitis. .
Moderate fecal material throughout the colon.
Mild diverticulosis.
Mild diffuse bladder wall thickening. This can be seen with cystitis or bladder outlet obstruction.
Mild prostate hypertrophy.
Abd MRI
IMPRESSION:
1. SEVERE CHRONIC PANCREATITIS.
2. MULTIPLE PANCREATIC CYSTS (largest 2.3 cm in the pancreatic head) which are probably PSEUDOCYSTS. Pancreatic head cancer is considered less likely given the absence of a definitive soft tissue mass and the absence of pancreatic and bile duct
obstruction.
3. SEVERE DIFFUSE HEPATIC STEATOSIS.
4. Severe atrophy of the left lobe of the liver.
5. CHOLELITHIASIS.
6. Mild splenomegaly.
7. 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
Wound Care Instructions
Nose and scalp abrasions-clean with saline or soap and water, silicone border foam, change daily until healed. Protect from sun, wear sunscreen.
Follow up at wound care center if needed, call for an appointment.
Instructions: Alcohol withdrawal, Chronic Pancreatitis (DC)
Referrals:
Doug Greenberg MD [Family Provider] -
Toro Coles MD [Active] - (follow up with Dr. Coles or [facility] to review for endoscopic ultrasound for pancreatic cysts)
Prescriptions:
New
thiamine HCl (vitamin B1) 100 mg Tablet
100 mg PO BID 30 Days Qty: 60 0RF
folic acid 1 mg Tablet
1 mg PO DAILY 30 Days Qty: 30 0RF
Refresh Classic (PF) 1.4-0.6 % Dropperette
1 drops ophthalmic (eye) QID 30 Days Qty: 1 0RF
cyclosporine 0.05 % Dropperette
1 drops BOTH EYES BID Qty: 1 0RF
Discontinued
diazepam 10 mg tablet
10 mg PO DAILYPRN PRN (Reason: anxiety/muscle spasms)
Patient Comments:
03/23/2024: last filled 12/28/23, 30 tabs for 30 days from [facility]
Discharge Orders:
Discharge Patient (As Directed); Ordered 03/26/24
Ordered By: Miguel Angel Kee
Discharge Date and Time
Print Language: KIS[place]HILI
--- NOTE | 2024-03-26 12:30 | CM ---
CM met with pt bedside
Discharge order noted
PT/OT recs of no needs vs VN
Plan for home no needs
[facility] offered again and pt declined
He already alerted dtr for ride home
Discharge Disposition- home, no needs, dtr transport
== END 2024-03-26 12:55 | disposition home or self-care (01) | DRG 897 ==
LOC: IMU 19:44
PROVIDERS: Internal Medicine; Physician Assistant Medical; ADMITTING PHYSICIAN Hospitalist; ATTENDING PHYSICIAN Hospitalist; CONSULT PHYSICIAN Internal Medicine; EMERGENCY PHYSICIAN Emergency Medicine; FAMILY PHYSICIAN Family Medicine
DX: F10.229 Alcohol dependence with intoxication, unspecified (principal); K86.0 Alcohol-induced chronic pancreatitis; K86.2 Cyst of pancreas; F10.239 Alcohol dependence with withdrawal, unspecified; F17.290 Nicotine dependence, other tobacco product, uncomplicated; Z80.42 Family history of malignant neoplasm of prostate; Z23 Encounter for immunization; D69.59 Other secondary thrombocytopenia; I10 Essential (primary) hypertension; E78.5 Hyperlipidemia, unspecified; S01.81XA Laceration without foreign body of other part of head, initial encounter; W19.XXXA Unspecified fall, initial encounter; D69.6 Thrombocytopenia, unspecified
CPT/HCPCS: 70450; 70486; 72125; 74177; 74183; 80053; 82077; 82248; 83690; 83735; 85025; 85027; 85610; 86803; 90471; 90715; 93005; 97163; 97166; 99285; 99406; A9575; Q9967

== ENCOUNTER 2024-05-18 16:53 | Emergency (ER) | payer OTHER, SELFPAY ==
[2024-05-18 16:56] VITALS: BP 154/89
--- NOTE | 2024-05-18 18:07 | ED.GENMED ---
Addendum entered and electronically signed by Hugh Dalton DO 05/18/24 22:03:
Update CT reports noted patient eating food tray
Original Note:
History of Present Illness
General
Chief Complaint: Fall
Source: patient
Exam Limitations: altered mental status
Time Seen by Provider: 05/18/24 17:54
Nursing documentation reviewed up to this point in time: agreed with
History of Present Illness
History of Present Illness:
63-year-old male from both found passed out in the lobby of his apartment community apparently had some wine colored bottles next to them states he drinks all the time, does not know how he got here does not know if he hit his head currently police
and EMS could not get him up, he removes all extremities he is cooperative smells of urine
Past History
Past History
ED Past Surgical History: None
Social History
Tobacco: Non-smoker
Alcohol: Chronic alcoholic
Drug: None
Personal: Single
Living: alone
Employment: Retired
Review of Systems
Review of Systems
All Other Systems: Not applicable
EENT: Reports no symptoms
Respiratory: Reports no symptoms
Cardiac: Reports no symptoms
ABD/GI: Reports no symptoms
Phy Exam
Physical Exam
Physical Exam:
Physical Exam
General: 63-year-old male cooperative smells of urine
Neck: No tongue bite, abrasion on the right forehead
Heart: s1/s2 regular rate and rhythm, no murmur. equal radial pulses.
Lungs: no acute respiratory distress. clear bilaterally
Abdomen: Nontender
Neuro: alert and oriented. no focal neurological deficits lift his legs off the bed without any difficulty
Skin: no rash
Psychiatric:cooperative
Extremities: no edema.
Course
Orders/Labs/Results
Orders:
Orders
05/18/24 18:03
CT Cervical Spine W/o Iv Contr Urgent
Comment:
Reason For Exam: drunken fall
CT Head W/o Iv Contrast Urgent
Comment:
Reason For Exam: drunk who fell
Bedside Glucose- Treatment ONCE
Vital Signs
Initial and Last Documented VS:
Initial Vital Signs
Temp Pulse Resp BP
98 F 72 16 154/89
05/18/24 16:56 05/18/24 16:56 05/18/24 16:56 05/18/24 16:56
Last Documented Vital Signs
Temp Pulse Resp BP
98 F 72 16 154/89
05/18/24 16:56 05/18/24 16:56 05/18/24 16:56 05/18/24 16:56
MDM/Problems Addressed
Differential Diagnosis Includes:
Slip and fall called head trauma hypoglycemia
MDM/Problems Addressed:
Fall alcoholic
Acute Exacerbation and/or Progression of Chronic Illness:
Alcoholism
*Radiology
Radiology exam reviewed: radiology read reviewed
*Pulse Oximetry
Patient hypoxic: no
*Critical Care Note
Total Time (30-74mins, 75-104mins- exclusive of procedures): Not Applicable
Update Note
Update Note:
No signs of hip fracture by history and physical check CT head cervical spine Accu-Chek see if he can ambulate
ED Attending Note
-
Portions of this chart may have been created with voice recognition software.� Occasional wrong word or��sound alike� substitutions may have occurred due to the inherent limitations of voice recognition software.
Discharge Plan
Departure
Prescriptions:
No Action
thiamine HCl (vitamin B1) 100 mg Tablet
100 mg PO BID 30 Days Qty: 60 0RF
folic acid 1 mg Tablet
1 mg PO DAILY 30 Days Qty: 30 0RF
Refresh Classic (PF) 1.4-0.6 % Dropperette
1 drops ophthalmic (eye) QID 30 Days Qty: 1 0RF
cyclosporine 0.05 % Dropperette
1 drops BOTH EYES BID Qty: 1 0RF
Interventions
Interventions:
*Risk Screen - Suicide Last Done: 05/18/24 16:56
*General Assessment Last Done: 05/18/24 17:11
*Neglect/Abuse Screening Last Done: 05/18/24 16:56
ED- Fall Risk Assessment Last Done: 05/18/24 17:11
ED- Neurological Assessment Last Done: 05/18/24 17:11
Discharge Date and Time
Print Language: INDONESIAN
[2024-05-18 18:11] LABS: Glucose - Point of Care 89 mg/dl (70-99)
[2024-05-18 21:59] VITALS: BP 134/99
== END 2024-05-18 22:19 | disposition home or self-care (01) ==
LOC: EMR 16:53
PROVIDERS: EMERGENCY PHYSICIAN Emergency Medicine
DX: S00.81XA Abrasion of other part of head, initial encounter (principal); W19.XXXA Unspecified fall, initial encounter; R32 Unspecified urinary incontinence; F10.20 Alcohol dependence, uncomplicated
CPT/HCPCS: 99284; 70450; 72125; 82962

== ENCOUNTER 2024-05-27 19:00 | Emergency (ER) | payer OTHER, SELFPAY ==
[2024-05-27 19:02] VITALS: BP 143/85
[2024-05-27 19:26] LABS: % Basophils 0.3 % (0-2); % Eosinophils 1.9 % (0-6); % Immature Granulocytes 0.6 % (0-0.5); % Lymphocytes 22.2 % (20.5-51.1); Absolute Eosinophils 0.2 10^3/uL (0-0.7); Absolute Immature Granulocytes 0.1 10^3/uL (0-0.05); Absolute Lymphocytes 2.2 10^3/uL (1.2-3.4); Absolute Monocytes 1.2 10^3/uL (0.1-0.6); Absolute Neutrophils 6.1 10^3/uL (1.4-6.5); Hematocrit 43.1 % (39.0-52.0); Hemoglobin 15.5 g/dL (13.0-18.0); Mean Corpuscular Hgb 35.5 pg (27.0-31.0); Mean Corpuscular Volume 98.6 fL (80.0-94.0); Mean Platelet Volume 11.1 fL (7.4-10.4); Nucleated Red Blood Cells % 0 % (-); Platelet Count 84 10^3/uL (130-400); Red Blood Cell Count 4.37 10^6/uL (4.70-6.10); Red Cell Dist. Width 13.7 % (11.5-14.5); White Blood Cell Count 9.7 10^3/uL (4.8-10.8)
[2024-05-27 19:41] LABS: ALT (SGPT) 81 U/L (0-50); AST (SGOT) 278 U/L (17-59); Alkaline Phosphatase 93 U/L (38-126); Blood Urea Nitrogen 8 mg/dl (9-20); Calcium 8.6 mg/dl (8.4-10.2); Carbon Dioxide 23 mmol/L (22-30); Chloride 93 mmol/L (98-107); Glucose 95 mg/dl (70-99); Potassium 3.6 mmol/L (3.5-5.1); Sodium 132 mmol/L (135-145); Total Bilirubin 1.3 mg/dl (0.2-1.3); Total Protein 6.5 g/dl (6.3-8.2); eGFR > 60.00
[2024-05-27 19:43] LABS: Alcohol 253 mg/dl; Lipase 206 U/L (23-300)
--- NOTE | 2024-05-27 20:52 | ED.GENMED ---
History of Present Illness
General
Chief Complaint: Alcohol Problem
Source: patient
Exam Limitations: none
Time Seen by Provider: 05/27/24 20:29
History of Present Illness
History of Present Illness:
63-year-old male presents with daughter with interested in getting help with alcohol abuse. Patient is a daily drinker. He drinks wine. Last drink was on the way here. He has a history of pancreatitis of which she was admitted for in March.
Daughter has places that she looked into for him to go to but they do require clearance. Patient denies abdominal pain chest pain or shortness of breath. He has no complaints offered currently.
Past History
Past History
ED Past Surgical History: None
Social History
Tobacco: Non-smoker
Alcohol: Chronic alcoholic
Drug: None
Personal: Single
Living: alone
Employment: Retired
Phy Exam
Physical Exam
Physical Exam:
General: Well-appearing male no acute respiratory distress
HEENT: Normocephalic atraumatic
Heart: Regular rate and rhythm
Lungs: Clear
Neurologic exam: Alert and oriented no facial asymmetry no tremor noted
Skin warm no diaphoresis or rash
Extremities: No cyanosis
Course
Orders/Labs/Results
Orders:
Orders
05/27/24 19:11
Alcohol Urgent
Complete Blood Count/With Diff Urgent
Comprehensive Metabolic Panel Urgent
Lipase Urgent
Abnormal Lab Results
05/27/24
19:11
RBC 4.37 L 10^6/uL
(4.70-6.10)
MCV 98.6 H fL
(80.0-94.0)
MCH 35.5 H pg
(27.0-31.0)
Plt Count 84 L 10^3/uL
(130-400)
MPV 11.1 H fL
(7.4-10.4)
Abs Immat Gran (auto) 0.1 H 10^3/uL
(0-0.05)
Absolute Monos (auto) 1.2 H 10^3/uL
(0.1-0.6)
Immature Gran % 0.6 H %
(0-0.5)
Monocytes % 12.0 H %
(1.7-9.3)
Sodium 132 L mmol/L
(135-145)
Chloride 93 L mmol/L
(98-107)
BUN 8 L mg/dl
(9-20)
Creatinine 0.5 L mg/dL
(0.7-1.3)
AST 278 H U/L
(17-59)
ALT 81 H U/L
(0-50)
05/27/24 19:11
05/27/24 19:11
Vital Signs
Initial and Last Documented VS:
Initial Vital Signs
Temp Pulse Resp BP Pulse Ox
98.2 F 87 16 143/85 95
05/27/24 19:02 05/27/24 19:02 05/27/24 19:02 05/27/24 19:02 05/27/24 19:02
Last Documented Vital Signs
Temp Pulse Resp BP Pulse Ox
98.2 F 69 16 113/75 95
05/27/24 19:02 05/27/24 21:04 05/27/24 21:04 05/27/24 21:04 05/27/24 21:04
MDM/Problems Addressed
Differential Diagnosis Includes:
Patient with stable vital signs no signs of acute withdrawal. Requesting help with alcohol detox and rehab placement. Accompanied by daughter.
History of pancreatitis. Reviewed prior records which demonstrated an MRI of his abdomen showing a 2.3 cyst on the dorsalis thought to be a pseudocyst and signs of chronic pancreatitis. Lipase today is normal abdomen exam is benign. Do not
suspect any acute pancreatitis.
[facility]ed [facility] for their involvement
Update Note
Update Note:
Patient reevaluated vital signs remained stable discussed with Krystal Godoy. Needed spoke with family and patient. Trying to get him a bed in the facility in [place], [place]. Waiting on authorization.
ED Attending Note
-
Portions of this chart may have been created with voice recognition software.� Occasional wrong word or��sound alike� substitutions may have occurred due to the inherent limitations of voice recognition software.
Discharge Plan
Departure
Patient Disposition: Acute Rehab Facility
Date of Disposition: 05/27/24
Time of Disposition: 21:47
Discharge Problem:
Alcohol abuse
Instructions: Alcohol Use Disorder (DC)
Prescriptions:
No Action
thiamine HCl (vitamin B1) 100 mg Tablet
100 mg PO BID 30 Days Qty: 60 0RF
folic acid 1 mg Tablet
1 mg PO DAILY 30 Days Qty: 30 0RF
Refresh Classic (PF) 1.4-0.6 % Dropperette
1 drops ophthalmic (eye) QID 30 Days Qty: 1 0RF
cyclosporine 0.05 % Dropperette
1 drops BOTH EYES BID Qty: 1 0RF
Referrals:
Doug Greenberg MD [Family Provider] -
Activity Restrictions/Additional Instructions:
Please seek further treatment at rehab facility
Interventions
Interventions:
*Risk Screen - Suicide Last Done: 05/27/24 21:03
*General Assessment Last Done: 05/27/24 21:00
*Neglect/Abuse Screening Last Done: 05/27/24 20:59
ED- Fall Risk Assessment Last Done: 05/27/24 21:00
*ED COVID-19 Vaccine History Last Done: 05/27/24 21:00
ED- Neurological Assessment Last Done: 05/27/24 21:09
ED-Psychological Assessment Last Done: 05/27/24 21:09
Discharge Date and Time
Print Language: FRISIAN
[2024-05-27 21:00] VITALS: BMI 24.0
[2024-05-27 21:04] VITALS: BP 113/75
[2024-05-27 22:58] VITALS: BP 131/73
[2024-05-28] VITALS (8 sets, daily range): BP systolic 107–136; BP diastolic 60–90
[2024-05-28] MEDS: TYLENOL 500 MG PO (11:06)
[2024-05-28] MEDS: MOBIC 15 MG PO (11:07)
== END 2024-05-28 15:27 ==
LOC: EMR 19:00
PROVIDERS: Emergency Medicine; EMERGENCY PHYSICIAN Emergency Medicine; FAMILY PHYSICIAN Family Medicine
DX: F10.10 Alcohol abuse, uncomplicated (principal); Z87.19 Personal history of other diseases of the digestive system
CPT/HCPCS: 99283; 80053; 82077; 83690; 85025